=== PATIENT | female | born 1985 | race Caucasian/White ===

== ENCOUNTER 2022-10-17 10:07 | Outpatient (OUT) | payer OTHER, SELFPAY ==
[2022-10-17 12:08] LABS: Free T3 2.66 pg/mL (2.18-3.98); Thyroid Stimulating Hormone 1.098 uIU/mL (0.358-3.740)
--- NOTE | 2022-10-17 15:05 | US_ITS ---
The [address] [address] Patient Name: DAVID IGNACIO MRN: [id number] date: 1985 Sex: F Assigned Patient Location: LAB Current Patient Location: LAB Accession/Order Number: [id number] Exam Date: 10/17/2022 15:06 Report Date: 10/17/2022 18:17 At the request of: HARPAL IRVING Procedure: US thyroid EXAMINATION: US thyroid HISTORY: Chronic Fatigue R53.82 COMPARISON: No relevant comparison available. TECHNIQUE: Sonographic images of the thyroid gland were obtained. FINDINGS: The right thyroid lobe is normal in size and contour with mildly heterogeneous echotexture. The lobe measures 4.6 x 1 7 x 1.7 cm. The thyroid isthmus measures 3 mm, heterogeneous. No focal nodule. The left thyroid lobe is normal in size and contour with mildly heterogeneous echotexture. The lobe measures 4.8 x 1.9 x 1.5 cm US/US thyroid IMPRESSION: Mildly heterogeneous thyroid gland with no focal nodules Electronically authenticated by: CLIFFORD LINDSAY Date: 10/17/2022 18:17
[2022-10-20 08:12] LABS: Thyroid Peroxidase (TPO) Ab 57 IU/mL (0-34)
== END 2022-10-17 10:08 | disposition home or self-care (01) ==
LOC: LAB 10:13
PROVIDERS: PCP Nurse Practitioner Family; Visit Provider Nurse Practitioner Family
DX: R53.82 Chronic fatigue, unspecified (principal)
CPT/HCPCS: 36415; 76536; 84436; 84443; 84481; 86376